=== PATIENT | male | born 1945 | race Caucasian/White ===

== ENCOUNTER → 2023-10-12 15:29 | Outpatient (REF) | payer MEDICARE, SELFPAY | LOC: HWRAD 15:29 | PROVIDERS: ATTENDING PHYSICIAN Physician Assistant Medical | DX: J45.41 Moderate persistent asthma with (acute) exacerbation (principal) | CPT/HCPCS: 71046 ==

== ENCOUNTER 2023-10-23 12:43 | Inpatient (IN) | payer MEDICARE, SELFPAY ==
[2023-10-23 08:40] VITALS: BMI 30.7
[2023-10-23 08:52] VITALS: BP 147/71
[2023-10-23 09:16] LABS: % Basophils 0.4 % (0-2); % Eosinophils 0.5 % (0-6); % Immature Granulocytes 1.7 % (0-0.5); % Lymphocytes 6.8 % (20.5-51.1); % Monocytes 5.6 % (1.7-9.3); Absolute Basophils 0.1 10^3/uL (0-0.2); Absolute Eosinophils 0.1 10^3/uL (0-0.7); Absolute Immature Granulocytes 0.3 10^3/uL (0-0.05); Absolute Lymphocytes 1.1 10^3/uL (1.2-3.4); Absolute Monocytes 0.9 10^3/uL (0.1-0.6); Absolute Neutrophils 13.8 10^3/uL (1.4-6.5); Hematocrit 42.6 % (39.0-52.0); Hemoglobin 14.8 g/dL (13.0-18.0); Mean Corp Hgb Conc. 34.7 g/dL (33.0-37.0); Mean Corpuscular Volume 95.1 fL (80.0-94.0); Mean Platelet Volume 9.7 fL (7.4-10.4); Nucleated Red Blood Cells % 0 % (-); Platelet Count 288 10^3/uL (130-400); Red Blood Cell Count 4.48 10^6/uL (4.70-6.10); Red Cell Dist. Width 12.6 % (11.5-14.5); White Blood Cell Count 16.2 10^3/uL (4.8-10.8)
--- NOTE | 2023-10-23 09:26 | ED.GENMED ---
History of Present Illness
General
Chief Complaint: Flank Pain
Source: patient
Exam Limitations: none
Time Seen by Provider: 10/23/23 09:11
Nursing documentation reviewed up to this point in time: agreed with
Travel History
Have you had any contact with someone who has COVID-19?: No
Do you have any symptoms of coronavirus? Fever > 100 degrees, chills, cough, shortness of breath, sore throat, loss of taste or smell, muscle aches, or headache?: No
History of Present Illness
History of Present Illness:
PT IS A 78 Y/O M with h/o 1 remote kidney stone requiring surgical removal in [place]
here with L back pain a few days ago that he though twas muscular
he has had a URI with a cough that is mostly improved, but he is still coughing
he was taking tylenol for this
but then at 3 am his pain got much worse and is still staying localized to L back but is very similar to previous kidney stone
pt has had n/v x 2 toay
no fever, no hematuria, no dysuria, no diarrhea
Past History
Past History
ED Past Medical History: Hypercholesterolemia and Other (kdiney stone)
Social History
Tobacco: Non-smoker
Alcohol: None
Drug: None
Personal:
Living: with family
Review of Systems
Review of Systems
Allergies reviewed?: Yes
All Other Systems: Not applicable
Phy Exam
Physical Exam
Physical Exam:
GENERAL: Alert, uncomfortable
Neck: supple
CARDIAC: Regular rate and rhythm .
LUNGS: Clear breath sounds bilaterally, no acute respiratory distress, no wheezes/rales/rhonchi
ABDOMEN: Soft, normal bowel sounds, nondistended, mild L flankt enderness; no guarding, no rebound, neg jenkins's
: normal inspection of region
nontender testicles b/l
no rashes
L cva region tender
NEUROLOGICAL: Alert and oriented, no focal neuro deficits
SKIN: Warm and dry, skin intact.
PSYCH: Normal and appropriate interaction.
Course
Orders/Labs/Results
Orders:
Orders
10/23/23 09:06
Complete Blood Count/With Diff Urgent
Comprehensive Metabolic Panel Urgent
10/23/23 09:22
0.9% Sodium Chloride 1000 ml [Nss] 1,000 ml IV BOLUS
HYDROmorphone [Dilaudid] 0.5 mg IV NOW STA
Ondansetron Injectable [Zofran] 4 mg IV NOW STA
10/23/23 09:31
Lactic Acid Q4H
Comment: CANCEL 2nd LACTIC ACID IF 1st LACTIC ACID IS LESS THAN 2
Blood Culture Q30M
ТАТЬЯНА Source: Blood/Venous
Specimen Description:
10/23/23 09:34
Urinalysis Reflex To Culture Urgent
Date Specimen was Collected: 10/23/23
Time Specimen was Collected: 09:32
Urine Microscopic Reflex Cult Urgent
10/23/23 09:37
Blood Culture Q30M
ТАТЬЯНА Source: Blood/Venous
Specimen Description:
10/23/23 Lunch
Regular
10/23/23 10:25
CT Abd/pel Without Iv Or Oral Urgent
Comment:
Reason For Exam: left flank pain, h/o kidney stone
10/23/23 10:32
Ketorolac [Toradol] 15 mg IV NOW STA
10/23/23 12:26
Admit/Transfer Patient As Directed
Co-Sign Provider:
Level of Care: Inpatient admission
Assign to:: Medical/Surgical
Physician / Group: Delon Lockhart
Diagnosis: Left ureteral obstructing stone
Reason for Hospitalization: Left ureteral obstructing stone
Expected length of stay greater than two midnights?: Yes
ELOS- Estimated Length of Stay in days: 3
I certify the patient meets the requirements for IP care: Yes
10/23/23 12:35
Code Status As Directed
Resuscitation Status: Full Code
10/23/23 14:40
Acetaminophen [Tylenol] 650 mg PO Q4HPRN PRN
Albuterol [ProAIR HFA INHALER] 2 puff INH R Q6HPRN PRN
Bisacodyl [Dulcolax] 10 mg RECTAL [id number] PRN
Docusate W/Senna [Senokot-S] 1 tablet PO BIDPRN PRN
HYDROmorphone [Dilaudid] 0.5 mg IV Q4HPRN PRN
Ondansetron Injectable [Zofran] 4 mg IV Q6HPRN PRN
Oxycodone [Roxicodone] 5 mg PO Q4HPRN PRN
Polyethylene Glycol Powder [Miralax] 17 grams PO DAILYPRN PRN
10/23/23 14:40
Activity As Directed
Activity Level: As Tolerated
Pneumatic Compression Sleeves As Directed
Type: Knee high
Vital Signs As Directed
Frequency: Per unit guidelines
DX Deep Vein Thrombosis Video Routine
10/23/23 15:00
Lactic Acid Q4H
Comment: CANCEL 2nd LACTIC ACID IF 1st LACTIC ACID IS LESS THAN 2
0.9% Sodium Chloride 1000 ml [Nss] 1,000 ml IV 75 mls/hr
10/23/23 16:00
CefTRIAXone [Rocephin] 1,000 mg IV Q24H
10/23/23 20:00
Tamsulosin [Flomax] 0.4 mg PO BID
10/24/23 Breakfast
NPO
Allow oral meds: Yes
Allow clear liquids: 4hrs prior to procedure
Comment: may have unrestricted clear liquid up to 4 hrs prior to scheduled procedure
Basic Metabolic Panel IN AM
Complete Blood Count/No Diff IN AM
10/24/23 08:00
Atorvastatin [Lipitor] 80 mg PO DAILY
Abnormal Lab Results
10/23/23 10/23/23
09:06 09:34
WBC 16.2 H 10^3/uL
(4.8-10.8)
RBC 4.48 L 10^6/uL
(4.70-6.10)
MCV 95.1 H fL
(80.0-94.0)
MCH 33.0 H pg
(27.0-31.0)
Abs Immat Gran (auto) 0.3 H 10^3/uL
(0-0.05)
Absolute Neuts (auto) 13.8 H 10^3/uL
(1.4-6.5)
Absolute Lymphs (auto) 1.1 L 10^3/uL
(1.2-3.4)
Absolute Monos (auto) 0.9 H 10^3/uL
(0.1-0.6)
Immature Gran % 1.7 H %
(0-0.5)
Neutrophils % 85.0 H %
(42.2-75.2)
Lymphocytes % 6.8 L %
(20.5-51.1)
Chloride 108 H mmol/L
(98-107)
Glucose 134 H mg/dl
(70-99)
ALT 80 H U/L
(0-50)
Urine Ketones Trace A
(Negative)
Ur Occult Blood Reflex 2+ A
(Negative)
Leukocyte Esterase Rfl Trace A
(Negative)
Urine RBC 16-20 A /HPF
(0-2)
10/23/23 09:06
10/23/23 09:06
Vital Signs
Initial and Last Documented VS:
Initial Vital Signs
Temp Pulse Resp BP Pulse Ox
99.1 F 70 18 147/71 97
10/23/23 08:52 10/23/23 08:52 10/23/23 08:52 10/23/23 08:52 10/23/23 08:52
Last Documented Vital Signs
Temp Pulse Resp BP Pulse Ox
99.0 F 74 16 131/82 95
10/23/23 14:56 10/23/23 14:56 10/23/23 14:56 10/23/23 14:56 10/23/23 14:56
MDM/Problems Addressed
Differential Diagnosis Includes:
kidney stone, pyelo, divertic
MDM/Problems Addressed:
78 y/o M
h/o 1 previous kidney stone removed (when living in [facility])
3 days lower back pain, worse at 3 am today, n/v x 2;
more comfortable now after pain meds
wbc 16
urine with 2+ blood, trace LE, no bacteria, no wbc;
ct shows 1 cm L prox UPJ stone with hydro
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
recommends either admit to medicine and OR tomorrow or d/c home with outpatient OR arrangement
pt would prefer admission
s/o hospitalist.
*Critical Care Note
Total Time (30-74mins, 75-104mins- exclusive of procedures): Not Applicable
ED Attending Note
-
Portions of this chart may have been created with voice recognition software.� Occasional wrong word or��sound alike� substitutions may have occurred due to the inherent limitations of voice recognition software.
Discharge Plan
Departure
Patient Disposition: Admit
Date of Disposition: 10/23/23
Time of Disposition: 11:46
Admit to: Med/Surg
Presentation/result/management discussed w/ accepting MD/DO: Hospitalist
Condition: Fair
Covid-19: Not Applicable
Discharge Problem:
Ureterolithiasis, Hydronephrosis
Interventions
Interventions:
*Risk Screen - Suicide Last Done: 10/23/23 09:04
*General Assessment Last Done: 10/23/23 09:04
*Neglect/Abuse Screening Last Done: 10/23/23 09:04
*ED COVID-19 Vaccine History Last Done: 10/23/23 09:04
*Nursing Disposition Last Done: 10/23/23 14:08
JE-Zetgbk-Hbhcbroofq Assessment Last Done: 10/23/23 09:10
ED-Male Genitourinary Assessment Last Done: 10/23/23 09:10
Discharge Date and Time
Discharge Date/Time: 10/23/23 14:08
[2023-10-23 09:30] LABS: ALT (SGPT) 80 U/L (0-50); AST (SGOT) 44 U/L (17-59); Albumin 4.4 g/dl (3.5-5.0); Alkaline Phosphatase 111 U/L (38-126); Blood Urea Nitrogen 20 mg/dl (9-20); Calcium 9.5 mg/dl (8.4-10.2); Carbon Dioxide 23 mmol/L (22-30); Chloride 108 mmol/L (98-107); Estimated Creatinine Clearance 80 ml/min; Glucose 134 mg/dl (70-99); Potassium 4.5 mmol/L (3.5-5.1); Sodium 137 mmol/L (135-145); Total Bilirubin 0.8 mg/dl (0.2-1.3); Total Protein 7.1 g/dl (6.3-8.2); eGFR > 60.00
[2023-10-23] MEDS: ZOFRAN 4 MG IV (09:32)
[2023-10-23] MEDS: DILAUDID 0.5 MG IV (09:33)
[2023-10-23] MEDS: NSS 1000 IV ×2 (09:33→15:59)
[2023-10-23 09:38] VITALS: BP 154/86
[2023-10-23 10:00] VITALS: BP 157/86
[2023-10-23 10:13] LABS: Urine Albumin Negative (Neg - Trace); Urine Bilirubin Negative (Negative); Urine Character Clear (Clear); Urine Color Yellow; Urine Glucose Negative (Negative); Urine Ketone Trace (Negative); Urine Leukocyte Trace (Negative); Urine Nitrite Negative (Negative); Urine Occult Blood 2+ (Negative); Urine Urobilinogen Negative (Neg - 1+)
[2023-10-23 10:38] LABS: Urine Mucus Moderate
[2023-10-23 10:39] LABS: Urine Red Blood Cell 16-20 /HPF (0-2)
[2023-10-23 10:40] LABS: Urine Calcium Oxalate Crystals Seen; Urine White Cell 0-2 /HPF (0-5)
[2023-10-23] MEDS: TORADOL 15 MG IV (10:56)
[2023-10-23 11:00] VITALS: BP 140/81
--- NOTE | 2023-10-23 12:38 | HPS.HSE ---
Family Physician
-
Family Physician: Kait Manzano
Chief Complaint
-
Left back pain
History of Present Illness
Patient is a 78-year-old male with past medical history of hyperlipidemia, BPH, asthma, history of kidney stones, prediabetes came to ER with new onset of left-sided flank pain. Patient initially started having pain 1 week back and felt to be
muscular in nature. Last night started worsening rapidly with associated nausea and vomiting. Patient does have remote history of kidney stone requiring surgical intervention in [place]. Patient does follow-up with urology for BPH. Denies of
having any other episodes of kidney stones in between.
Patient denies any associated problems of fever/hematuria/foul-smelling urine. No change in bowel habits.
No cardiopulmonary complaints.
Medical History
Past Medical History
Past Medical History: Reports Other
Additional Past Medical History:
hyperlipidemia, BPH, asthma, history of kidney stones, prediabetes
Past Surgical History: Reports Other
Social History
Tobacco: Non-smoker
Alcohol: Occasional
Drug: None
Living: With Family
Employment: Retired
Family History
Family History: Not pertinent
Allergies / Home Medications
Allergies reflects when Allergies were last updated in [facility].
Home Medications with original date entered in [facility]
Allergy/Medication List:
Allergies
Allergy/AdvReac Type Severity Reaction Status Date / Time
No Known Allergies Allergy Unverified 10/23/23 08:51
Home Medications
albuterol sulfate 90 mcg/actuation aerosol inhaler 2 puff inhalation Q6H PRN Shortness of breath 10/23/23
ascorbic acid (vitamin C) 1,000 mg tablet (Vitamin C) 500 mg PO DAILY Supplement 10/23/23
atorvastatin 80 mg tablet 80 mg PO DAILY High Cholesterol 10/23/23
multivitamin 1 tab PO DAILY Supplement 10/23/23
tamsulosin 0.4 mg capsule 0.4 mg PO BID Prostate 10/23/23
turmeric 400 mg capsule 400 mg PO DAILY Supplement 10/23/23
vitamin B complex 1 cap PO DAILY Supplement 10/23/23
vitamin E 670 mg (1,000 unit) capsule 670 mg PO DAILY Supplement 10/23/23
Review of Systems
-
A 12 point ROS was completed and negative except as noted: Yes
Physical Exam
Vital Signs
Vital Signs
Temp Pulse Resp BP Pulse Ox
99.1 F 70 18 157/86 93
10/23/23 08:52 10/23/23 08:52 10/23/23 08:52 10/23/23 10:00 10/23/23 10:00
Physical Exam
General: No Apparent Distress
HEENT: NormoCephalic, Moist mucous membranes and Atraumatic
Respiratory: Clear
Cardiac: S1/S2 and Regular Rhythm; No Murmur or Rub
GI: Soft and Non Tender
Musculoskeletal: No Clubbing, No Cyanosis and No Edema
Skin: No Rash
Neuro: Awake, Alert, Oriented and Nonfocal/grossly intact
Laboratory Results
-
10/23/23 09:06
10/23/23 09:06
Laboratory Results
Lactic Acid 2.0 mmol/L (0.7-2.0) 10/23/23 09:31
Total Bilirubin 0.8 mg/dl (0.2-1.3) 10/23/23 09:06
AST 44 U/L (17-59) 10/23/23 09:06
ALT 80 U/L (0-50) H 10/23/23 09:06
Alkaline Phosphatase 111 U/L (38-126) 10/23/23 09:06
Data Reviewed
-
Diagnostic Radiology: Image Personally Visualized and interpreted, Discussed with Patient and Discussed with Family
Lab Data: Labs Reviewed by me, Discussed with Patient and Discussed with Family
Impression/Plan
-
1. Left UPJ obstructing stone
Urinary tract infection
-Comes in with ongoing flank pain with rapid worsening in last 24 hours
-Patient have leukocytosis. afbrile.
-CT abdomen pelvis showing 1 cm kidney stone at left UPJ causing obstruction and hydronephrosis
-UA showed microhematuria although no pyuria/bacteriuria presumed infected urine being blocked by left UPJ stone. Would cover with empiric Rocephin for now
-Admit patient to [facility]
-Urology consulted and patient for OR tomorrow, maintain n.p.o. past midnight
-Maintenance slow IV fluid and pain medication
hyperlipidemia
BPH
asthma
history of kidney stones
prediabetes
DVT PPX - scd
Full code
Total time spent : 77 mins
I personally saw and examined the patient.
I have reviewed all diagnostic interpretations and treatment plans as written.
Time includes patient management by me, time spent at the patients bedside, time to review lab and imaging results, discussing patient care, documentation in the medical record, and time spent with the family or caregiver and discussing care plan
with RN/Consultants.
[2023-10-23 14:56] VITALS: BP 131/82; BMI 30.9
[2023-10-23 15:29] LABS: Lactic Acid 1.2 mmol/L (0.7-2.0)
[2023-10-23] MEDS: STERILE WATER FOR INJECTION 10 ML IV (15:44)
[2023-10-23] MEDS: ROCEPHIN 1000 MG IV (15:59)
--- NOTE | 2023-10-23 17:30 | W.PN.URO.CBU ---
Today's Communication / Plan
-
to op room npo at hs
Assessment / Plan
-
10mm left upj stone with bph and s/p uretrolithotomy years ago plabn uretroscopic lasr unless cannot bypas bph an / or navigate ureral scar on left
Diagnosis
-
Date of Service: October 23, 2023
-
Patient Diagnosis:10mm obstructing left upj stone n pt with bphand previous urtrolithotomy
Post Op Day:
Subjective
-
no fevr vchills
Objective
-
Vital Signs
Temp Pulse Resp BP Pulse Ox
99.0 F 74 16 131/82 95
10/23/23 14:56 10/23/23 14:56 10/23/23 14:56 10/23/23 14:56 10/23/23 14:56
Laboratory Results
10/23/23 09:06
10/23/23 09:06
Review of Systems
-
Abdomen/GI: Nausea
: Flank Pain
Physical Exam
-
General - well developed, well nourished, no acute distress
Chest - clear bilaterally
Abdomen - soft, non-tender, positive bowel sounds, no CVAT, no incisional pain or distention
Genitalia - normal
Rectal - normal
Skin - warm & dry with no rash
Neuro - AOx3, no motor deficits
Extremities - no clubbing, no cyanosis, no edema
Incision - clean, dry
Dressing - clean, dry, intact
Counseling
-
dd consent explained procedure altenaivs and complications
Care Review
Data Reviewed
Discussed with: Hospitalist and Nursing
CT Scan: Image Pers Reviewed
[2023-10-23] MEDS: FLOMAX 0.400000000000000022 MG PO (21:15)
[2023-10-23] MEDS: ROXICODONE 5 MG PO (21:15)
[2023-10-23] MEDS: TYLENOL 650 MG PO (21:19)
[2023-10-23 23:30] VITALS: BP 131/80
[2023-10-24] VITALS (11 sets, daily range): BP systolic 115–148; BP diastolic 65–105
[2023-10-24] MEDS: NSS 1000 IV (05:23)
[2023-10-24 08:26] LABS: Hematocrit 40.4 % (39.0-52.0); Hemoglobin 13.9 g/dL (13.0-18.0); Mean Corp Hgb Conc. 34.4 g/dL (33.0-37.0); Mean Corpuscular Hgb 33.4 pg (27.0-31.0); Mean Corpuscular Volume 97.1 fL (80.0-94.0); Platelet Count 262 10^3/uL (130-400); Red Blood Cell Count 4.16 10^6/uL (4.70-6.10); Red Cell Dist. Width 12.8 % (11.5-14.5)
[2023-10-24 09:09] LABS: Glycohemoglobin (HgbA1c) 5.9 % (4.0-5.6)
[2023-10-24 09:13] LABS: Blood Urea Nitrogen 21 mg/dl (9-20); Calcium 8.9 mg/dl (8.4-10.2); Carbon Dioxide 26 mmol/L (22-30); Chloride 105 mmol/L (98-107); Estimated Creatinine Clearance 101 ml/min; Glucose 96 mg/dl (70-99); Potassium 4.5 mmol/L (3.5-5.1); Sodium 135 mmol/L (135-145); eGFR > 60.00
--- NOTE | 2023-10-24 10:21 | W.SUR.POST ---
Surgical Immediate Post Op
Note
Pre Op Diagnosis: left upj stone with obstruction
Post Op Diagnosis: same
Procedure Performed: left uretroscopystone manipulation jj stent
Primary Surgeon:
flashner
Secondary Surgeons:
Anesthesia: general dr sanabria
Estimated Blood Loss: 30cc
Fluids: nss
Drains/Shunts: 24 cm 6 fr jj stent
Specimens/Cultures:
Doppler/Duplex/Angio (Y/N):
Complications: 0
Operative Findinghuge prostae preventinfg advancement odf scope and ax=ccess sheet placed torres and jj stent :
[2023-10-24] MEDS: DEMEROL 12.5 MG IV (10:36)
[2023-10-24] MEDS: DILAUDID 0.25 MG IV ×3 (10:55→17:04)
[2023-10-24] MEDS: FLOMAX 0.400000000000000022 MG PO (11:18)
--- NOTE | 2023-10-24 12:46 | W.PN.HOSP.TC ---
Today's Communication/Plan
-
d/c home
Assessment / Plan
Assessment / Plan
1. Left UPJ obstructing stone
Urinary tract infection
-Comes in with ongoing flank pain with rapid worsening in last 24 hours
-Patient have leukocytosis. afbrile.
-CT abdomen pelvis showing 1 cm kidney stone at left UPJ causing obstruction and hydronephrosis
-Patient taken to the OR. Due to enlarged prostate stone could not be retrieved, underwent ureteral stent placement with plan for patient to return to the OR in few weeks for definitive treatment of stone
-Discussed with urology, recommended short course of antibiotic. Providing oral Levaquin for 5 days
-Poole catheter in place with some bleeding ongoing. Poole to be removed and patient to have voiding trial.
-Patient to be discharged home if successfully able to void otherwise will require Poole replacement and discharge after that
hyperlipidemia
BPH
asthma
history of kidney stones
prediabetes
DVT PPX - scd
Full code
More than 30 minutes spent in discharge including
Final examination of the patient
Summarizing hospital stay
Instructions for continuing care to all relevant caregivers
Preparation of discharge records, prescriptions, and referral forms
Total time spent (in minutes): 40 mins
Anticipated Discharge: Today
Subjective/Interval History
-
Date of Service: October 24, 2023
Patient seen postoperatively
Not complaining excessive pain/nausea/vomiting
Objective Data
-
Labs:
Laboratory Results
10/24/23 10/24/23
07:38 07:39
WBC 9.0
Hgb 13.9
Hct 40.4
Plt Count 262
Sodium 135
Potassium 4.5
Chloride 105
Carbon Dioxide 26
BUN 21 H
Creatinine 0.8
Glucose 96
Calcium 8.9
Vital Signs:
Vital Signs
Temp Pulse Resp BP Pulse Ox
97.6 F 71 16 145/77 97
10/24/23 12:00 10/24/23 12:00 10/24/23 12:00 10/24/23 12:00 10/24/23 12:00
I&O
10/23/23 10/24/23 10/25/23
06:59 06:59 06:59
Intake Total 1140 / 1140 460 / 460
Output Total 300 / 300
Balance 1140 / 1140 160 / 160
Review of Systems
-
Respiratory: Reports No Symptoms
Cardiac: Reports No Symptoms
Abdomen/GI: Reports No Symptoms
Physical Exam
-
General: No Apparent Distress and Comfortable
HEENT: Negative Oxygen
Genito-urinary: Other (Poole catheter in place with sanguinous urine)
Musculoskeletal: No Edema
Neuro: Awake, Alert, Oriented, No Motor Deficits and Nonfocal/Grossly Intact
Psych: Calm
[2023-10-24] MEDS: DILAUDID 0.5 MG IV ×2 (14:32→18:34)
[2023-10-24] MEDS: STERILE WATER FOR INJECTION 10 ML IV (16:00)
[2023-10-24] MEDS: ROCEPHIN 1000 MG IV (16:01)
--- NOTE | 2023-10-25 08:07 | W.DCSUMMARY ---
Discharge Summary
Discharge Data
Date of Admission: 10/23/23
Date of Discharge: 10/24/23
-
Pending Results: No
Hospital Course
Discharging Physician : Dr Delon Lockhart
Disposition : Home
Primary care physician : Dr Kait Manzano
Principal Discharge diagnosis :
Left ureteropelvic junction obstructing stone and hydronephrosis
Chronic Discharge diagnosis :
Hyperlipidemia
Benign prostatic hyperplasia
Asthma
History of kidney stones
Prediabetes
Hospital Course :
Patient is a 78-year-old male with mentioned past medical history came to ER for having new onset of left-sided flank pain, which is ongoing for 1 week. Patient symptoms got worse rapidly in 24 hours before ER visit associated with nausea and
vomiting. In ER patient had a CT abdomen pelvis which showed 1 cm left UPJ obstructing stone and related to hydronephrosis. UA was not showing significant pyuria and bacteriuria. Urology was consulted and patient was planned to taken to the OR.
In the OR stone was not able to be completely retrieved due to patient BPH and instead stent was placed in ureter. Patient is planned to be brought back to the OR into 3 weeks for definitive treatment of stone. Patient being provided short course
of antibiotic per urology recommendation at discharge
Important imaging findings :
None
Procedure findings :
None
Discharge Plan
-
Patient Disposition: Home (Routine Discharge)
Discharge Diagnosis/Procedures: Left UPJ obstructing stone, UTI
Condition: Fair
Diet: Regular
Activity: As tolerated
Driving Restrictions: No driving for 24 hours
Bathing Restrictions: OK to Shower
Referrals:
Kait Manzano MD [Family Provider] - in one week
Tavo Mathew MD [Active] - (you have a stent Expect frequncy and urgency and blood in urin Call Dr Mathew [phone] to set upnext phase treatment)
Prescriptions:
New
levofloxacin 750 mg tablet
750 mg PO DAILY 5 Days Qty: 5 0RF
oxycodone 5 mg tablet
5 mg PO Q8H PRN (Reason: mod sev pain) Qty: 14 0RF
Continued
atorvastatin 80 mg tablet
80 mg PO DAILY
tamsulosin 0.4 mg capsule
0.4 mg PO BID
albuterol sulfate 90 mcg/actuation HFA aerosol inhaler
2 puff INHALATION Q6H PRN (Reason: Shortness of breath )
Patient Comments:
Was only using for a short term due to respiratory infection cough
multivitamin Tablet
1 tab PO DAILY
vitamin E 670 mg (1,000 unit) Capsule
670 mg PO DAILY
ascorbic acid (vitamin C) [Vitamin C] 1,000 mg Tablet
500 mg PO DAILY
vitamin B complex Capsule
1 cap PO DAILY
turmeric 400 mg Capsule
400 mg PO DAILY
Discharge Orders:
Discharge Patient (As Directed); Ordered 10/24/23
Ordered By: Delon Lockhart
Discharge Date and Time
Discharge Date/Time: 10/24/23 18:50
Print Language: WELSH
== END 2023-10-24 18:50 | disposition home or self-care (01) | DRG 661 ==
LOC: 3 WEST ACU 12:43
PROVIDERS: Physician Assistant; ADMITTING PHYSICIAN Hospitalist; EMERGENCY PHYSICIAN Student in an Organized Health Care Education/Training Program; FAMILY PHYSICIAN Internal Medicine; OTHER PHYSICIAN Specialist
PROC: 0T778DZ Dilation of Left Ureter with Intraluminal Device, Via Natural or Artificial Opening Endoscopic (ICD-10-PCS; 2023-10-24)
DX: N13.6 Pyonephrosis (principal); E78.00 Pure hypercholesterolemia, unspecified; N40.0 Benign prostatic hyperplasia without lower urinary tract symptoms; R73.03 Prediabetes; R31.0 Gross hematuria; Z87.442 Personal history of urinary calculi
CPT/HCPCS: 74018; 74176; 76000; 80048; 80053; 81003; 81015; 83036; 83605; 85025; 85027; 87040; 96361; 96374; 96375; 99284; A4300; C1894; C2617

== ENCOUNTER 2023-11-10 06:19 | Day surgery (SDC) | payer MEDICARE, SELFPAY ==
[2023-11-10] VITALS (8 sets, daily range): BP systolic 116–142; BP diastolic 71–85; BMI 30.4
[2023-11-10 11:00] LABS: Urine Albumin 1+ (Neg - Trace); Urine Bilirubin Negative (Negative); Urine Character Slightly Cloudy (Clear); Urine Color Yellow; Urine Glucose Negative (Negative); Urine Ketone Negative (Negative); Urine Leukocyte 2+ (Negative); Urine Nitrite Negative (Negative); Urine Occult Blood 4+ (Negative); Urine Urobilinogen Negative (Neg - 1+)
[2023-11-10] MEDS: NORMOSOL-R 1000 IV (11:05)
[2023-11-10 11:14] LABS: Urine Red Blood Cell 40-50 /HPF (0-2); Urine Squamous Cell 0-2 /LPF (Few)
[2023-11-10 11:16] LABS: Urine Bacteria Few (Negative)
[2023-11-10] MEDS: Pyridium 200 MG PO (16:18)
== END 2023-11-10 17:53 | disposition home or self-care (01) ==
LOC: SDS 06:19
PROVIDERS: ATTENDING PHYSICIAN Specialist
DX: N40.0 Benign prostatic hyperplasia without lower urinary tract symptoms (principal); N20.2 Calculus of kidney with calculus of ureter
CPT/HCPCS: 52356; 74420; 76000; 81003; 81015; 87086; A4300; C1894; C2617; J1580

== ENCOUNTER 2025-02-07 12:50 | Inpatient (IN) | payer MEDICARE, SELFPAY ==
[2025-02-07] VITALS (9 sets, daily range): BP systolic 120–165; BP diastolic 55–89; BMI 31.9; BMI 32.0
[2025-02-07 08:32] LABS: Hematocrit 42.8 % (39.0-52.0); Hemoglobin 14.5 g/dL (13.0-18.0); Mean Corp Hgb Conc. 33.9 g/dL (33.0-37.0); Mean Corpuscular Volume 96.8 fL (80.0-94.0); Nucleated Red Blood Cells % 0 % (-); Platelet Count 254 10^3/uL (130-400); Red Cell Dist. Width 12.3 % (11.5-14.5)
[2025-02-07 08:55] LABS: ALT (SGPT) 38 U/L (0-50); AST (SGOT) 33 U/L (17-59); Albumin 4.6 g/dl (3.5-5.0); Alkaline Phosphatase 89 U/L (38-126); Blood Urea Nitrogen 15 mg/dl (9-20); Calcium 9.4 mg/dl (8.4-10.2); Carbon Dioxide 23 mmol/L (22-30); Chloride 108 mmol/L (98-107); Estimated Creatinine Clearance 71 ml/min; Glucose 138 mg/dl (70-99); Potassium 4.8 mmol/L (3.5-5.1); Sodium 140 mmol/L (135-145); Total Protein 7.2 g/dl (6.3-8.2); eGFR > 60.00
[2025-02-07 08:59] LABS: Urine Character Clear (Clear)
[2025-02-07] MEDS: FLOMAX 0.4 MG PO ×2 (09:00→18:22)
[2025-02-07] MEDS: NSS 1000 IV ×2 (09:00→18:19)
[2025-02-07] MEDS: TORADOL 30 MG IV (09:00)
[2025-02-07] MEDS: ZOFRAN 4 MG IV (09:02)
[2025-02-07] MEDS: MORPHINE SULFATE 4 MG IV (09:02)
[2025-02-07 09:35] LABS: Urine Urothelial Cell 0-2 /LPF (FEW)
[2025-02-07 09:36] LABS: Urine Red Blood Cell 16-20 /HPF (0-2); Urine White Cell 40-50 /HPF (0-5)
--- NOTE | 2025-02-07 10:01 | ED.GENMED ---
History of Present Illness
General
Chief Complaint: Flank Pain
Time Seen by Provider: 02/07/25 08:46
History of Present Illness
History of Present Illness:
See MDM
Past History
Past History
ED Past Medical History: Hypercholesterolemia and Other (kdiney stone)
Social History
Tobacco: Non-smoker
Alcohol: None
Drug: None
Personal:
Living: with family
Phy Exam
Physical Exam
Physical Exam:
See MDM
Course
Orders/Labs/Results
Orders:
Orders
02/07/25 08:20
CMP [Comprehensive Metabolic Panel] Urgent
Complete Blood Count/With Diff Urgent
02/07/25 08:51
Urinalysis Reflex To Culture Urgent
Date Specimen was Collected: 02/07/25
Time Specimen was Collected: 08:50
Urine Microscopic Reflex Cult Urgent
Urine Culture Urgent
ТАТЬЯНА Source: U
Specimen Description:
Date Specimen was Collected: 02/07/25
Time Specimen was Collected: 08:50
02/07/25 08:54
0.9% Sodium Chloride 1000 ml [Nss] 1,000 ml IV BOLUS
Ketorolac [Toradol] 30 mg IV NOW STA
Morphine Sulfate 4 mg IV NOW STA
Ondansetron Injectable [Zofran] 4 mg IV NOW STA
Tamsulosin [Flomax] 0.4 mg PO NOW STA
02/07/25 08:55
CT Abd/pel Without Iv Or Oral Urgent
Comment:
Reason For Exam: left flank pain
02/07/25 09:59
CefTRIAXone [Rocephin] 1,000 mg IV NOW STA
02/07/25 11:20
Consult Urology [UROLOGY CONSULT] Routine
Consulting Provider: Randy Vila
Was physician already notified: Yes
Abnormal Lab Results
02/07/25 02/07/25
08:20 08:51
WBC 17.8 H 10^3/uL
(4.8-10.8)
RBC 4.42 L 10^6/uL
(4.70-6.10)
MCV 96.8 H fL
(80.0-94.0)
MCH 32.8 H pg
(27.0-31.0)
Abs Immat Gran (auto) 0.1 H 10^3/uL
(0-0.05)
Absolute Neuts (auto) 15.6 H 10^3/uL
(1.4-6.5)
Absolute Lymphs (auto) 0.9 L 10^3/uL
(1.2-3.4)
Absolute Monos (auto) 1.1 H 10^3/uL
(0.1-0.6)
Neutrophils % 87.8 H %
(42.2-75.2)
Lymphocytes % 5.1 L %
(20.5-51.1)
Chloride 108 H mmol/L
(98-107)
Glucose 138 H mg/dl
(70-99)
Ur Occult Blood Reflex 2+ A
(Negative)
Urine Nitrite (Reflex) Positive A
(Negative)
Leukocyte Esterase Rfl 3+ A
(Negative)
Urine RBC 16-20 A /HPF
(0-2)
Urine WBC (Reflex) 40-50 A /HPF
(0-5)
Urine Bacteria (Reflex) Many A
(Negative)
Urine Albumin (Reflex) 2+ A
(Neg - Trace)
02/07/25 08:20
02/07/25 08:20
Vital Signs
Initial and Last Documented VS:
Initial Vital Signs
Temp Pulse Resp BP Pulse Ox
98.7 F 98 20 164/89 100
02/07/25 08:11 08/19/25 08:11 02/07/25 08:11 02/07/25 08:11 02/07/25 08:11
Last Documented Vital Signs
Temp Pulse Resp BP Pulse Ox
98.7 F 58 17 147/68 95
02/07/25 08:11 02/07/25 09:56 02/07/25 09:56 02/07/25 09:56 02/07/25 09:56
MDM/Problems Addressed
Differential Diagnosis Includes:
Note:
CHIEF COMPLAINT(S)
Left-sided abdominal pain, possible kidney stone.
HISTORY OF PRESENT ILLNESS
The patient is a 79-year-old male who presents with left-sided abdominal pain that began in the morning. The patient suspects another kidney stone, as he has had a history of kidney stones in the past. He described the pain as severe enough to wake
him up. The patient has not taken any medication for the pain at home. He reports associated nausea but did not specify the presence of vomiting.
EXTERNAL RECORDS REVIEWED
CT scan ordered to confirm the presence of a kidney stone.
PHYSICAL EXAM
General: Mildly uncomfortable
Skin: Warm, dry.
Head: Normocephalic, atraumatic
Neck: Appears supple, trachea midline.
Eyes, Ears, Nose, Mouth, and Throat: Oral mucosa moist.
Cardiovascular: No signs of cyanosis
Respiratory: Respirations are non-labored.
Abdomen: Non-distended and nontender
Back: No CVA tenderness
Musculoskeletal: No deformities
Neurological: No focal neurological deficit observed.
Psychiatric: Cooperative, appropriate mood and affect.
PLAN
1. Administer Toradol (ketorolac) intravenously for pain management.
2. Administer Zofran (ondansetron) to address nausea.
3. If pain is not relieved, morphine will be given with consideration of arranging alternative transportation due to effects of sedation.
4. Perform a CT scan to confirm the presence, size, and location of a kidney stone.
5. Check the patients urine for hematuria or signs of infection.
6. Prescribe Flomax (tamsulosin) to facilitate stone passage if confirmed.
DIFFERENTIAL DIAGNOSIS
The Differential Diagnosis includes, in no particular order and is not limited to:
1. Nephrolithiasis (Kidney stone)
2. Pyelonephritis
3. Abdominal aortic aneurysm
4. Intestinal obstruction
5. Diverticulitis
6. Pancreatitis
7. Herpes zoster (before rash onset)
8. Musculoskeletal pain
9. Gastroenteritis
10. Renal colic
CARE-UPDATE
02/07/25 - 10:01
Initiated Rocephin for suspected UTI. Further disposition pending results of CT scan to assess for potential obstruction
Disposition:
SUMMARY OF ENCOUNTER
The patient, a 79-year-old male, presented to the emergency department with severe left-sided abdominal pain, suspected to be due to a kidney stone as he has had a history of nephrolithiasis. A CT scan confirmed the presence of a large kidney stone
at the left ureteropelvic junction (U.P.J.). His urine tested positive for nitrites, and he showed leukocytosis. Due to the size of the stone and concerns of an underlying infection, the decision was made to admit the patient for further urological
evaluation and management.
DISPOSITION
Admit to hospital for urology evaluation.
ASSESSMENT
The patient has a large kidney stone at the left U.P.J. with possible associated infection.
EMERGENCY TREATMENTS ADMINISTERED
Intravenous ceftriaxone (Rocephin) was administered due to positive urine nitrites and leukocytosis indicating possible infection.
PLAN
Admit the patient for further evaluation by urology, who is aware of the case and plans to place the patient on the operating room schedule for tomorrow.
INDEPENDENT REVIEW OF LABS AND INTERPRETATION OF TESTS
My independent review of the urinalysis is positive for nitrites and the CBC shows leukocytosis, indicating possible infection.
MEDICAL DECISION MAKING
-Complexity of Data Reviewed: Chronic conditions affecting care include history of nephrolithiasis. Differential Diagnosis includes: nephrolithiasis (Kidney stone), pyelonephritis, abdominal aortic aneurysm, intestinal obstruction, diverticulitis,
pancreatitis, herpes zoster, musculoskeletal pain, gastroenteritis, and renal colic.
-Data:
Category 1
Non-emergency department records reviewed: I reviewed the patients external records which included previous episodes of nephrolithiasis.
Category 2
My independent interpretation of the CT scan confirms a large kidney stone at the left ureteropelvic junction.
Category 3
Discussion of management with urology regarding the need for surgical intervention and placing the patient on the OR schedule.
-Risk:
Prescription medication was prescribed: Intravenous ceftriaxone due to concern for infection associated with the kidney stone. Admission to the hospital was decided upon to manage the risk of complications from the kidney stone and potential
infection.
DIAGNOSIS
Nephrolithiasis with potential infection (ICD-10 code: N20.0).
*Pulse Oximetry
SaO2: 95
Oxygen Mode of Delivery: Room air
Patient hypoxic: no
*Critical Care Note
Total Time (30-74mins, 75-104mins- exclusive of procedures): Not Applicable
ED Attending Note
-
Portions of this chart may have been created with voice recognition software.� Occasional wrong word or��sound alike� substitutions may have occurred due to the inherent limitations of voice recognition software.
Discharge Plan
Departure
Patient Disposition: Admit
Date of Disposition: 02/07/25
Time of Disposition: 11:24
Admit to: Med/Surg
Presentation/result/management discussed w/ accepting MD/DO: Hospitalist
Discharge Problem:
Left ureteral stone, Acute UTI
Prescriptions:
No Action
atorvastatin 80 mg tablet
80 mg PO DAILY
tamsulosin 0.4 mg capsule
0.4 mg PO BID
albuterol sulfate 90 mcg/actuation HFA aerosol inhaler
2 puff INHALATION Q6H PRN (Reason: Shortness of breath )
Patient Comments:
Was only using for a short term due to respiratory infection cough
multivitamin Tablet
1 tab PO DAILY
vitamin E 670 mg (1,000 unit) Capsule
670 mg PO DAILY
ascorbic acid (vitamin C) [Vitamin C] 1,000 mg Tablet
500 mg PO DAILY
vitamin B complex Capsule
1 cap PO DAILY
turmeric 400 mg Capsule
400 mg PO DAILY
solifenacin 10 mg Tablet
10 mg PO DAILY
Referrals:
Robyn Do DO [Family Provider, Family Practice]
Interventions
Interventions:
*Risk Screen - Suicide Last Done: 02/07/25 08:11
*General Assessment Last Done: 02/07/25 08:11
*Neglect/Abuse Screening Last Done: 02/07/25 08:54
*ED COVID-19 Vaccine History Last Done: 02/07/25 08:54
TN-[id number]-[id number] Assessment Last Done: 02/07/25 08:54
ED-Male Genitourinary Assessment Last Done: 02/07/25 08:54
Discharge Date and Time
Print Language: SOUTH AFRICAN
[2025-02-07] MEDS: ROCEPHIN 1000 MG IV ×2 (10:13→20:28)
--- NOTE | 2025-02-07 11:46 | HPS.HSE ---
Addendum entered and electronically signed by William Holly MD 02/07/25 19:52:
I interviewed and examined the patient. Discussed with Dr. Belkis Turner and agree with findings and plan as documented in note.
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
notable for elevated WBC at 17.8, BUN normal.� Urinalysis suggestive UTI.� CT scan showed 19 mm calculus at the left ureteropelvic junction. Slightly progressive perinephric soft tissue stranding and mild to moderate hydronephrosis. Pain improved
during ED evaluation and treatment with pain medications IVF and abx. No costovertebral angle tenderness was noted following pain control. Examination was notable for distended abdomen vs obesity habitus patient noted had been present for a few
months. Denied recent weight gain/loss or constipation.
Physical Exam
General: No acute distress, appears comfortable at this time
HEENT: NormoCephalic and Moist mucous membranes
Respiratory: Clear
Cardiac: S1/S2 and Regular Rhythm
GI: Soft, Non Tender, Distended Abd vs Obesity Habitus
Musculoskeletal: No Edema
Neuro: AO x 3
Psych: Calm
#Left ureteropelvic junction obstructing calculus with mild�moderate hydronephrosis
#Likely associated Lt Pyelonephritis
#Complicated UTI
#Obesity BMI 31.9
#Distended abd vs Obesity Habitus
#Hyperlipidemia
#BPH
#Asthma
IV abx ceftriaxone
follow urine culture
Urology eval appreciated npo after midnight for intervention
IVF support
Check Abd US in AM eval distended abd vs body habitus
pain control Tylenol Toradol prn
GI ppx Protonix while on Toradol
I spent a total of 80 minutes with the patient or on the floor. More than 50% of this time involved counseling and coordination of care.
Original Note:
Family Physician
-
Family Physician: Robyn Do DO
Chief Complaint
-
left sided flank pain
History of Present Illness
This is a 79-year-old male with past medical history of hyperlipidemia, BPH, asthma, history of kidney stones who presents to the ED complaining of left-sided flank pain that began this morning at 1am.� Patient reports pain was similar to what he
had one year ago when he had a kidney stone.� Reports pain was severe, waking him up from sleep.� He reports nausea and vomiting episode. Denies hematemesis. Denies Chest pain, shortness of breath, palpitation. Denies fever, denies chills.
Upon presentation to the ED, vitals with temperature 98.7, blood pressure 164/89, pulse 98, respiratory rate 20, O2 sat 100% on room air.� Laboratory showed elevated WBC at 17.8, BUN normal.� Urinalysis positive for UTI.� He was evaluated with a CT
scan which showed 19 mm calculus at the left ureteropelvic junction. Slightly progressive perinephric soft tissue stranding and mild to moderate hydronephrosis.
Medical History
Past Medical History
Past Medical History: Reports Other (hyperlipidemia, BPH, asthma, history of kidney stones, prediabetes)
Past Surgical History: Reports Urological and Other
Social History
Tobacco: Non-smoker
Alcohol: Occasional
Drug: None
Living: With Family
Employment: Retired
Family History
Family History: Not pertinent
Allergies / Home Medications
Allergies reflects when Allergies were last updated in [facility].
Home Medications with original date entered in [facility]
Allergy/Medication List:
Allergies
Allergy/AdvReac Type Severity Reaction Status Date / Time
No Known Allergies Allergy Verified 02/07/25 08:11
Home Medications
ascorbic acid (vitamin C) 1,000 mg tablet (Vitamin C) 500 mg PO DAILY Supplement 10/23/23
atorvastatin 80 mg tablet 80 mg PO DAILY High Cholesterol 10/23/23
multivitamin 1 tab PO DAILY Supplement 10/23/23
tamsulosin 0.4 mg capsule 0.4 mg PO QPM Prostate 10/23/23
turmeric 400 mg capsule 400 mg PO DAILY Supplement 10/23/23
vitamin B complex 1 cap PO DAILY Supplement 10/23/23
vitamin E 670 mg (1,000 unit) capsule 670 mg PO DAILY Supplement 10/23/23
coQ10 (ubiquinol) 100 mg capsule 100 mg PO DAILY 02/07/25
finasteride 5 mg tablet 5 mg PO QPM 02/07/25
Review of Systems
-
A 12 point ROS was completed and negative except as noted: Yes
Constitutional: Reports No Symptoms
Respiratory: Reports No Symptoms
Cardiac: Reports No Symptoms
Abdomen/GI: Reports See HPI
Physical Exam
Vital Signs
Vital Signs
Temp Pulse Resp BP Pulse Ox
98.7 F 66 18 120/55 95
02/07/25 08:11 02/07/25 11:44 02/07/25 11:26 02/07/25 11:24 02/07/25 11:30
Physical Exam
General: Well Developed, Well Nourished and No Apparent Distress
HEENT: NormoCephalic and Moist mucous membranes
Respiratory: Clear
Cardiac: S1/S2 and Regular Rhythm
GI: Soft, Non Tender, Non Distended and Normal Bowel Sounds
Musculoskeletal: No Edema
Neuro: AO x 3
Psych: Calm
Laboratory Results
-
02/07/25 08:20
02/07/25 08:20
Laboratory Results
Total Bilirubin 0.7 mg/dl (0.2-1.3) 02/07/25 08:20
AST 33 U/L (17-59) 02/07/25 08:20
ALT 38 U/L (0-50) 02/07/25 08:20
Alkaline Phosphatase 89 U/L (38-126) 02/07/25 08:20
Impression/Plan
-
Assessment/plan
#Left ureteropelvic junction obstructing calculus with mild�moderate hydronephrosis
-CT abdomen- 19 mm calculus at the left ureteropelvic junction. Slightly progressive perinephric soft tissue stranding and mild to moderate hydronephrosis. Cannot exclude superimposed infection. Other tiny nonobstructing bilateral renal calculi.
Interval development of 1.9 cm peripherally calcified urinary bladder calculus.
-pain control with Toradol, IV fluids
-Urology consulted, plan for OR tomorrow
-Keep n.p.o. at midnight
-urinalysis positive, urine cultures pending
-Abx with Rocephin
#Hyperlipidemia
-Continue atorvastatin
#BPH
-Continue flomax, finasteride
#Asthma
-continue albuterol.�
CODE STATUS Full code
DVT prophylaxis SCDs
--- NOTE | 2025-02-07 14:12 | CONS.URO ---
Consultation
-
Date/Time Consultation Performed: 02/07/2025 1550
Requesting Provider: Florentino
Performing Provider: Julito
Reason for Consultation: Left Renal pelvic stone
Medical History
History of Present Illness
Admission note, excerpt: 'presents to the ED complaining of left-sided flank pain that began this morning at 1am.� Patient reports pain was similar to what he had one year ago when he had a kidney stone.� Reports pain was severe, waking him up from
sleep.� He reports nausea and vomiting episode. Denies hematemesis. Denies Chest pain, shortness of breath, palpitation. Denies fever, denies chills.
Upon presentation to the ED, vitals with temperature 98.7, blood pressure 164/89'
11/10/2023 Left ureteroscopy, laser lithotripsy of stone, left double-J stent exchange by Dr Mathew
Past Medical History
Past Medical History: Other (hyperlipidemia, BPH, asthma, kidney stones, prediabetes)
Past Surgical History: Urological (see HPI)
Allergies/Home Medications
Allergies
Allergy/AdvReac Type Severity Reaction Status Date / Time
No Known Allergies Allergy Verified 02/07/25 08:11
Home Medications
�Medication �Instructions �Recorded �Confirmed �Type
ascorbic acid (vitamin C) 1,000 mg 500 mg PO DAILY Supplement 10/23/23 02/07/25 History
tablet (Vitamin C)
atorvastatin 80 mg tablet 80 mg PO DAILY High Cholesterol 10/23/23 02/07/25 History
multivitamin 1 tab PO DAILY Supplement 10/23/23 02/07/25 History
tamsulosin 0.4 mg capsule 0.4 mg PO QPM Prostate 10/23/23 02/07/25 History
turmeric 400 mg capsule 400 mg PO DAILY Supplement 10/23/23 02/07/25 History
vitamin B complex 1 cap PO DAILY Supplement 10/23/23 02/07/25 History
coQ10 (ubiquinol) 100 mg capsule 100 mg PO DAILY Supplement 02/07/25 02/07/25 History
finasteride 5 mg tablet 5 mg PO QPM prostate issue 02/07/25 02/07/25 History
vitamin E 268 mg (400 unit) capsule 268 mg PO DAILY Supplement 02/07/25 02/07/25 History
Physical Exam
Vital Signs
Vital Signs
Temp Pulse Resp BP Pulse Ox
98.7 F 66 18 131/79 94
02/07/25 08:11 02/07/25 11:44 02/07/25 11:26 02/07/25 12:00 02/07/25 13:15
Lab / Testing Results
Laboratory Results
02/07/25 08:20
02/07/25 08:20
Physical Exam
adult male in bed in ED
General: No Apparent Distress
GI: Soft and Non Tender
Genito-urinary: No Costovertebral Tend
Skin: Warm
Neuro: Awake, Alert and Oriented
Psych: Calm and Intact Judgement
Assessment / Plan
-
15 mm LEFT Renal Pelvic Stone
posted for tomorrow's OR after hydration and antibiosis
Data Reviewed
-
CT Scan: Image personally visualized and interpreted (15 mm LEFT Renal Pelvic Stone; right nephrolith)
Old Records: Reviewed
[2025-02-07] MEDS: TORADOL 15 MG IV (18:13)
[2025-02-07] MEDS: PROSCAR 5 MG PO (18:19)
[2025-02-07] MEDS: NSS (PRESERVATIVE FREE) 10 ML IV (18:22)
[2025-02-07] MEDS: PROTONIX IV 40 MG IV (18:22)
--- NOTE | 2025-02-07 18:43 | PTCARENOTE ---
Pt arrived to [facility] form the ED on a stretcher. Pt walked from stretcher to bed without incidence. Pt c/o left flank pain. Toradol administered. IVF hung. Bed locked and in lowest position. Care ongoing.
[2025-02-07] MEDS: STERILE WATER FOR INJECTION 10 ML IV (20:27)
[2025-02-08] VITALS (9 sets, daily range): BP systolic 109–143; BP diastolic 46–72
[2025-02-08] MEDS: NSS 1000 IV ×2 (02:17→18:04)
--- NOTE | 2025-02-08 02:39 | DOWNTIME ---
There was a [employer] Client Records Management Analyst Downtime on 02/08/2025 from 0100 to 02/08/2025 at 0235. Downtime documentation of patient's care, including medication administrations, has been reconciled in the electronic record per guidelines. Refer to the
patient's paper chart under the miscellaneous tab to see printed paper medication records and downtime forms.
[2025-02-08 06:22] LABS: Hematocrit 39.2 % (39.0-52.0); Hemoglobin 13.2 g/dL (13.0-18.0); Mean Corp Hgb Conc. 33.7 g/dL (33.0-37.0); Mean Corpuscular Volume 99.2 fL (80.0-94.0); Platelet Count 226 10^3/uL (130-400); Red Cell Dist. Width 12.9 % (11.5-14.5)
[2025-02-08 06:47] LABS: Blood Urea Nitrogen 23 mg/dl (9-20); Calcium 8.7 mg/dl (8.4-10.2); Carbon Dioxide 24 mmol/L (22-30); Chloride 108 mmol/L (98-107); Estimated Creatinine Clearance 52 ml/min; Glucose 118 mg/dl (70-99); Magnesium 2.2 mg/dl (1.6-2.3); Potassium 4.5 mmol/L (3.5-5.1); Sodium 139 mmol/L (135-145); eGFR 47.65
--- NOTE | 2025-02-08 07:57 | W.PN.HOSP.TC ---
Today's Communication/Plan
-
Npo for urologic intervention today
cont abx
follow urine cx
pain control
Toradol switched to Dilaudid prn d/t mild LESIA
Assessment / Plan
Assessment / Plan
Physical Exam
General: No acute distress, appears comfortable at this time, obese
HEENT: NormoCephalic and Moist mucous membranes
Respiratory: Clear
Cardiac: S1/S2 and Regular Rhythm
GI: Soft, Non Tender, bowel sounds present
Musculoskeletal: No Edema
Neuro: AO x 3
Psych: Calm
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
notable for elevated WBC at 17.8, BUN normal.� Urinalysis suggestive UTI.� CT scan showed 19 mm calculus at the left ureteropelvic junction. Slightly progressive perinephric soft tissue stranding and mild to moderate hydronephrosis. Pain improved
during ED evaluation and treatment with pain medications IVF and abx. No costovertebral angle tenderness was noted following pain control. Examination was notable for distended abdomen vs obesity habitus patient noted had been present for a few
months. Denied recent weight gain/loss or constipation.
#Left ureteropelvic junction obstructing calculus with mild�moderate hydronephrosis
-CT abdomen- 19 mm calculus at the left ureteropelvic junction. Slightly progressive perinephric soft tissue stranding and mild to moderate hydronephrosis. Cannot exclude superimposed infection. Other tiny nonobstructing bilateral renal calculi.
Interval development of 1.9 cm peripherally calcified urinary bladder calculus.
-pain control with Dilaudid prn,
-IV fluid support
-Urology consult appreciated NPO for OR today ureteroscopy stent placement
-urinalysis positive, urine cultures pending
-Abx with Rocephin
#Mild LESIA
Cr 1.5 initial Cr 1.1
prn Toradol switched to Dilaudid as above
cont IVF support
monitor
#Hyperlipidemia
-Continue atorvastatin
#BPH
-Continue flomax, finasteride
#Asthma
-continue albuterol.�
#Obesity
Prior concern distended abd more likely obesity habitus
Abd US appreciated Fatty Liver disease no cirrhosis or ascites
wt loss counseled
CODE STATUS Full code
DVT prophylaxis SCDs
GI ppx Protonix
Anticipated Discharge: 24 - 48 hours
Subjective/Interval History
-
Date of Service: February 08, 2025
No acute distress, overall reports feeling well. NPO awaiting urologic intervention.
Objective Data
-
Labs:
Laboratory Results
02/08/25 02/08/25
05:58 05:59
WBC 16.8 H
Hgb 13.2
Hct 39.2
Plt Count 226
Sodium 139
Potassium 4.5
Chloride 108 H
Carbon Dioxide 24
BUN 23 H
Creatinine 1.5 H
Glucose 118 H
Calcium 8.7
Vital Signs:
Vital Signs
Temp Pulse Resp BP Pulse Ox
98.8 F 75 18 120/63 91
02/07/25 23:15 02/07/25 23:15 02/07/25 23:15 02/07/25 23:15 02/07/25 23:15
I&O
02/07/25 02/08/25 02/09/25
06:59 06:59 06:59
Intake Total 406 / 406
Balance 406 / 406
[2025-02-08] MEDS: PROTONIX IV 40 MG IV (10:29)
[2025-02-08] MEDS: NSS (PRESERVATIVE FREE) 10 ML IV (10:29)
[2025-02-08] MEDS: DILAUDID 0.25 MG IV ×2 (10:37→18:04)
--- NOTE | 2025-02-08 14:29 | CM ---
CM reviewed chart. patient seen bedside, initial assessment completed. Patient resides with his in a two story home plus basement, two steps to enter. Patient denies use of DME, VN/SNF hx. PCP confirmed Robyn Do, pharmacy [facility]
Rikki Kang, confirms prescription coverage. Patient denies needs at this time, likely home no needs. CM will continue to follow for all discharge planning needs.
Plan; home no needs anticipated
[2025-02-08 16:49] LABS: Glucose - Point of Care 109 mg/dl (70-99)
[2025-02-08] MEDS: ROCEPHIN IV (17:00)
[2025-02-08] MEDS: STERILE WATER FOR INJECTION IV (17:01)
[2025-02-08] MEDS: NSS IV (18:01)
[2025-02-08] MEDS: PROSCAR 5 MG PO (18:01)
[2025-02-08] MEDS: VITAMIN C 500 MG PO (18:01)
[2025-02-08] MEDS: THERAGRAN 1 TABLET PO (18:01)
[2025-02-08] MEDS: B COMPLEX w/VITAMIN C 1 CAPLET PO (18:01)
[2025-02-08] MEDS: LIPITOR 80 MG PO (18:01)
[2025-02-08] MEDS: FLOMAX 0.4 MG PO (18:04)
--- NOTE | 2025-02-08 18:30 | PTCARENOTE ---
Pt received from the PACU via bed. Pt is AAOx3, HRR, lungs are clear, Pt w/ non-prod. cough, Pulse ox is 93%RA. VSS, Pt is afebrile. Pt reports moderate bladder/pelvic pain. Will medicate for pain as ordered. Pt denies nausea at this time. Pt able
to void immediately upon arriving post operatively to [facility]. Pt instructed on plan of care. Pt verbalized understanding of instructions. [facility] is within reach.
[2025-02-08] MEDS: TYLENOL 650 MG PO (19:40)
[2025-02-09] MEDS: NSS 1000 IV (01:17)
[2025-02-09 03:06] VITALS: BP 118/58
[2025-02-09 05:44] LABS: Hematocrit 36.2 % (39.0-52.0); Hemoglobin 12.1 g/dL (13.0-18.0); Mean Corp Hgb Conc. 33.4 g/dL (33.0-37.0); Mean Corpuscular Volume 98.4 fL (80.0-94.0); Platelet Count 191 10^3/uL (130-400); Red Cell Dist. Width 13.0 % (11.5-14.5)
[2025-02-09 06:13] LABS: Blood Urea Nitrogen 27 mg/dl (9-20); Calcium 8.2 mg/dl (8.4-10.2); Carbon Dioxide 21 mmol/L (22-30); Chloride 112 mmol/L (98-107); Estimated Creatinine Clearance 65 ml/min; Glucose 121 mg/dl (70-99); Magnesium 2.3 mg/dl (1.6-2.3); Potassium 4.6 mmol/L (3.5-5.1); Sodium 137 mmol/L (135-145); eGFR > 60.00
[2025-02-09 07:30] VITALS: BP 125/62
--- NOTE | 2025-02-09 09:14 | W.PN.HOSP.TC ---
Addendum entered and electronically signed by William Holly MD 02/10/25 05:47:
correction to documentation
POD1 s/p Left Renal Pelvic Stone, s/p ureteroscopy, laser lithotripsy, stenting
Original Note:
Today's Communication/Plan
-
cont abx
follow up urine cx
trend wbc
Assessment / Plan
Assessment / Plan
Physical Exam
General: No acute distress, appears comfortable at this time, obese
HEENT: NormoCephalic and Moist mucous membranes
Respiratory: Clear
Cardiac: S1/S2 and Regular Rhythm
GI: Soft, Non Tender, bowel sounds present
Musculoskeletal: No Edema
Neuro: AO x 3
Psych: Calm
79M HLD, BPH, Asthma, hx kidney stones p/w left-sided flank pain that began brand inspector waking him from sleep.� Patient reported pain similar to previous episode kidney stone year ago requiring urology eval and stenting.� VSS on room air.� Labs
notable for elevated WBC at 17.8, BUN normal.� Urinalysis suggestive UTI.� CT scan showed 19 mm calculus at the left ureteropelvic junction. Slightly progressive perinephric soft tissue stranding and mild to moderate hydronephrosis. Pain improved
during ED evaluation and treatment with pain medications IVF and abx. No costovertebral angle tenderness was noted following pain control. Examination was notable for distended abdomen vs obesity habitus patient noted had been present for a few
months. Denied recent weight gain/loss or constipation.
#Left ureteropelvic junction obstructing calculus with mild�moderate hydronephrosis
-CT abdomen- 19 mm calculus at the left ureteropelvic junction. Slightly progressive perinephric soft tissue stranding and mild to moderate hydronephrosis. Cannot exclude superimposed infection. Other tiny nonobstructing bilateral renal calculi.
Interval development of 1.9 cm peripherally calcified urinary bladder calculus.
-pain control with Dilaudid prn,
-IV fluid support
-Urology consult appreciated NPO for OR today ureteroscopy stent placement
-urinalysis positive, urine cultures pending
-Abx with Rocephin
#Mild LESIA
Cr 1.5 initial Cr 1.1
prn Toradol switched to Dilaudid as above
Cr trending down
IVF support completed diet
monitor
#Hyperlipidemia
-Continue atorvastatin
#BPH
-Continue flomax, finasteride
#Asthma
-continue albuterol.�
#Obesity
Prior concern distended abd more likely obesity habitus
Abd US appreciated Fatty Liver disease no cirrhosis or ascites
wt loss counseled
CODE STATUS Full code
DVT prophylaxis SCDs
GI ppx Protonix
I spent a total of 40 minutes with the patient or on the floor. More than 50% of this time involved counseling and coordination of care.
Anticipated Discharge: Within 24 hours
Subjective/Interval History
-
Date of Service: February 09, 2025
No acute distress, overall reports feeling well. Reports some dysuria but transient. Currently pain free.
Objective Data
-
Labs:
Laboratory Results
02/09/25
05:31
WBC 15.0 H
Hgb 12.1 L
Hct 36.2 L
Plt Count 191
Sodium 137
Potassium 4.6
Chloride 112 H
Carbon Dioxide 21 L
BUN 27 H
Creatinine 1.2
Glucose 121 H
Calcium 8.2 L
Vital Signs:
Vital Signs
Temp Pulse Resp BP Pulse Ox
98.2 F 52 16 125/62 96
02/09/25 07:30 02/09/25 07:30 02/09/25 07:30 02/09/25 07:30 02/09/25 07:30
I&O
02/08/25 02/09/25 02/10/25
06:59 06:59 06:59
Intake Total 406 / 406 780 / 780
Output Total 600 / 600
Balance 406 / 406 180 / 180
--- NOTE | 2025-02-09 09:45 | W.PN.URO.CBU ---
Today's Communication / Plan
-
will see as an outpatient to discuss tx options for Prostate Enlargement, Bladder Outlet Obstruction, Bladder Stones
Assessment / Plan
-
urologically stabilized
Diagnosis
-
Date of Service: February 09, 2025
-
Patient Diagnosis:
1. Left Renal Pelvic Stone, s/p ureteroscopy, laser lithotripsy, stenting
2. Prostate Enlargement, Bladder Outlet Obstruction, Bladder Stones
Post Op Day: 1
Objective
-
Vital Signs
Temp Pulse Resp BP Pulse Ox
98.2 F 52 16 125/62 96
02/09/25 07:30 02/09/25 07:30 02/09/25 07:30 02/09/25 07:30 02/09/25 07:30
Intake and Output
02/08/25 02/09/25 02/10/25
06:59 06:59 06:59
Intake Total 406 / 406 780 / 780
Output Total 600 / 600
Balance 406 / 406 180 / 180
Intake:
Oral fluids 406 / 406 480 / 480
IV fluids (Total) 300 / 300
Normosol 300 / 300
Output:
Urine, Voided 600 / 600
Other:
Number of approximated MODERATE 2
amounts of urine
Laboratory Results
02/09/25 05:31
02/09/25 05:31
urine cx: pending
Physical Exam
-
General - well developed, well nourished, no acute distress
Chest - clear bilaterally
Abdomen - soft, non-tender, positive bowel sounds, no CVAT, no incisional pain or distention
Genitalia - normal
Rectal - normal
Skin - warm & dry with no rash
Neuro - AOx3, no motor deficits
Extremities - no clubbing, no cyanosis, no edema
Incision - clean, dry
Dressing - clean, dry, intact
[2025-02-09] MEDS: B COMPLEX w/VITAMIN C 1 CAPLET PO (10:03)
[2025-02-09] MEDS: LIPITOR 80 MG PO (10:03)
[2025-02-09] MEDS: NSS (PRESERVATIVE FREE) 10 ML IV (10:04)
[2025-02-09] MEDS: THERAGRAN 1 TABLET PO (10:04)
[2025-02-09] MEDS: PROTONIX IV 40 MG IV (10:05)
[2025-02-09] MEDS: VITAMIN C 500 MG PO (10:05)
--- NOTE | 2025-02-09 10:51 | CM ---
Home no needs.
Plan; Home when stable, no needs.
[2025-02-09 11:25] VITALS: BP 127/65
[2025-02-09] MEDS: STERILE WATER FOR INJECTION 20 ML IV (13:11)
[2025-02-09] MEDS: ROCEPHIN 2000 MG IV (13:11)
[2025-02-09] MEDS: TYLENOL 650 MG PO (13:16)
[2025-02-09 15:30] VITALS: BP 107/51
[2025-02-09] MEDS: FLOMAX 0.4 MG PO (18:32)
[2025-02-09] MEDS: PROSCAR 5 MG PO (18:32)
[2025-02-09 21:29] LABS: Hepatitis C Antibody Negative (Negative)
[2025-02-09 23:15] VITALS: BP 105/47
[2025-02-10 06:38] LABS: Hematocrit 36.7 % (39.0-52.0); Hemoglobin 12.0 g/dL (13.0-18.0); Mean Corp Hgb Conc. 32.7 g/dL (33.0-37.0); Mean Corpuscular Volume 98.4 fL (80.0-94.0); Platelet Count 193 10^3/uL (130-400); Red Cell Dist. Width 13.0 % (11.5-14.5)
[2025-02-10 06:59] LABS: Blood Urea Nitrogen 22 mg/dl (9-20); Calcium 8.5 mg/dl (8.4-10.2); Carbon Dioxide 25 mmol/L (22-30); Chloride 110 mmol/L (98-107); Estimated Creatinine Clearance 71 ml/min; Glucose 102 mg/dl (70-99); Magnesium 2.2 mg/dl (1.6-2.3); Potassium 4.8 mmol/L (3.5-5.1); Sodium 140 mmol/L (135-145); eGFR > 60.00
[2025-02-10 07:50] VITALS: BP 132/63
[2025-02-10] MEDS: NSS (PRESERVATIVE FREE) 10 ML IV (08:14)
[2025-02-10] MEDS: PROTONIX IV 40 MG IV (08:14)
[2025-02-10] MEDS: VITAMIN C 500 MG PO (08:16)
[2025-02-10] MEDS: THERAGRAN 1 TABLET PO (08:16)
[2025-02-10] MEDS: LIPITOR 80 MG PO (08:16)
[2025-02-10] MEDS: B COMPLEX w/VITAMIN C 1 CAPLET PO (08:16)
--- NOTE | 2025-02-10 09:19 | CM ---
Review the chart notes and spoke with the patient and spouse at the bedside. IMM reviewed. CM continues to be available to patient/family and is monitoring medical plan for needs at discharge.
Plan: Discharge to home with no additional needs being identified at this time.
--- NOTE | 2025-02-10 10:41 | W.PN.URO.CBU ---
Today's Communication / Plan
-
fit for discharge urologically
would tx for UTI with 10 days of po abx
will sign off
Assessment / Plan
-
urologically stabilized
urine cx -- see results
Diagnosis
-
Date of Service: February 10, 2025
-
Patient Diagnosis:
1. Left Renal Pelvic Stone, s/p ureteroscopy, laser lithotripsy, stenting
2. Prostate Enlargement, Bladder Outlet Obstruction, Bladder Stones
Post Op Day: 2
Subjective
-
hematuria and some dysuria, as expected
Objective
-
Vital Signs
Temp Pulse Resp BP Pulse Ox
99.0 F 59 18 132/63 95
02/10/25 07:50 02/10/25 07:50 02/10/25 07:50 02/10/25 07:50 02/10/25 07:50
Intake and Output
02/09/25 02/10/25 02/11/25
06:59 06:59 06:59
Intake Total 780 / 780 2340 / 2340
Output Total 600 / 600
Balance 180 / 180 2340 / 2340
Intake:
Oral fluids 480 / 480 2340 / 2340
IV fluids (Total) 300 / 300
Normosol 300 / 300
Output:
Urine, Voided 600 / 600
Other:
Number of approximated MODERATE 3
amounts of urine
Number of approximated LARGE 3
amounts of urine
Laboratory Results
02/10/25 06:06
02/10/25 06:06
Physical Exam
-
General - well developed, well nourished, no acute distress
Chest - clear bilaterally
Abdomen - soft, non-tender, positive bowel sounds, no CVAT, no incisional pain or distention
Genitalia - normal
Rectal - normal
Skin - warm & dry with no rash
Neuro - AOx3, no motor deficits
Extremities - no clubbing, no cyanosis, no edema
Incision - clean, dry
Dressing - clean, dry, intact
[2025-02-10] MEDS: ROCEPHIN 2000 MG IV (12:57)
[2025-02-10] MEDS: STERILE WATER FOR INJECTION 20 ML IV (12:57)
--- NOTE | 2025-02-10 13:18 | W.PN.HOSP.TC ---
Addendum entered and electronically signed by Aydin Chacon MD 02/10/25 17:00:
stone is 19 mm not 90 mm
Original Note:
Today's Communication/Plan
-
Discharge
Assessment / Plan
Assessment / Plan
79-year-old with left kidney stone status post ureteroscopic lithotripsy and stenting.
CT abdomen- 19 mm calculus at the left ureteropelvic junction. Slightly progressive perinephric soft tissue stranding and mild to moderate hydronephrosis. Cannot exclude superimposed infection. Other tiny nonobstructing bilateral renal calculi.
Interval development of 1.9 cm peripherally calcified urinary bladder calculus.
Anxious to go home!
CVS: S1-S2 normal
Chest: CTA B/L
Abdomen: Soft, NT / Bowel sounds present, No CVA tenderness.
Extremities: No edema
# s/p Left Renal Pelvic Stone, s/p ureteroscopy, laser lithotripsy, stenting for 90 mm calculus at the UP junction with hydronephrosis
Urine cultures coag neg staph
Change ceftriaxone To Ceftin
White count trending down
# Mild LESIA creatinine 1.5 from 1.1
Trending down
# Hyperlipidemia-Continue atorvastatin
# BPH-Continue Flomax, finasteride
# Asthma-continue albuterol.�
# Obesity BMI 31- weight loss advised
# Fatty Liver disease
# DVT prophylaxis-SCDs
# Full code
D/W RN
Discharge coordination time over 30 Min
Part of this note was created using voice recognition system. Occasional wrong word or��sound alike� substitutions may have inadvertently occurred due to the inherent limitations of voice recognition software. If noted kindly bring it to my
attention for correction.
Anticipated Discharge: Today
Subjective/Interval History
-
Date of Service: February 10, 2025
Objective Data
-
Labs:
Laboratory Results
02/10/25
06:06
WBC 10.9 H
Hgb 12.0 L
Hct 36.7 L
Plt Count 193
Sodium 140
Potassium 4.8
Chloride 110 H
Carbon Dioxide 25
BUN 22 H
Creatinine 1.1
Glucose 102 H
Calcium 8.5
Vital Signs:
Vital Signs
Temp Pulse Resp BP Pulse Ox
99.0 F 59 18 132/63 95
02/10/25 07:50 02/10/25 07:50 02/10/25 07:50 02/10/25 07:50 02/10/25 07:50
I&O
02/09/25 02/10/25 02/11/25
06:59 06:59 06:59
Intake Total 780 / 780 2340 / 2340 380 / 380
Output Total 600 / 600
Balance 180 / 180 2340 / 2340 380 / 380
--- NOTE | 2025-02-10 13:23 | W.DS.TRANS ---
Addendum entered and electronically signed by Aydin Chacon MD 02/10/25 17:01:
Dictation- [id number]
Original Note:
DC Summary - [employer]
-
Discharge Instructions:
Discharge Diagnosis/Procedures Left Renal Pelvic Stone s/p ureteroscopy, laser
lithotripsy, stenting; Prostate Enlargement with
Bladder Outlet Obstruction with Bladder Stones
UTI
fatty liver
Diet Low Fat
Activity As tolerated
Driving Restrictions As prior to admission
Instructions:
Stand-Alone Forms:
Changes to Home Medications: Yes
Discharge Medications:
DC Medications w/original date entered in [email or web address]
ascorbic acid (vitamin C) 1,000 mg tablet (Vitamin C) 500 mg PO DAILY Supplement 10/23/23
atorvastatin 80 mg tablet 80 mg PO DAILY High Cholesterol 10/23/23
multivitamin 1 tab PO DAILY Supplement 10/23/23
tamsulosin 0.4 mg capsule 0.4 mg PO QPM Prostate 10/23/23
turmeric 400 mg capsule 400 mg PO DAILY Supplement 10/23/23
vitamin B complex 1 cap PO DAILY Supplement 10/23/23
coQ10 (ubiquinol) 100 mg capsule 100 mg PO DAILY Supplement 02/07/25
finasteride 5 mg tablet 5 mg PO QPM prostate issue 02/07/25
cefuroxime axetil 500 mg tablet 500 mg PO BID uti 10 days #20 tabs 02/10/25
Home Medication Changes
yes
New- ceftin
Pending Results: No
[2025-02-10 13:59] VITALS: BP 122/62
== END 2025-02-10 14:13 | disposition home or self-care (01) | DRG 661 ==
LOC: 2 SOUTH 12:50
PROVIDERS: Emergency Medicine; Student in an Organized Health Care Education/Training Program; ADMITTING PHYSICIAN Internal Medicine; ATTENDING PHYSICIAN Hospitalist; CONSULT PHYSICIAN Specialist; EMERGENCY PHYSICIAN Student in an Organized Health Care Education/Training Program; FAMILY PHYSICIAN Internal Medicine
PROC: 0TC48ZZ Extirpation of Matter from Left Kidney Pelvis, Via Natural or Artificial Opening Endoscopic (ICD-10-PCS; 2025-02-08)
PROC: 0T778DZ Dilation of Left Ureter with Intraluminal Device, Via Natural or Artificial Opening Endoscopic (ICD-10-PCS; 2025-02-08)
DX: N13.6 Pyonephrosis (principal); E78.00 Pure hypercholesterolemia, unspecified; E78.49 Other hyperlipidemia; J45.909 Unspecified asthma, uncomplicated; G47.8 Other sleep disorders; R73.03 Prediabetes; N17.9 Acute kidney failure, unspecified; K76.0 Fatty (change of) liver, not elsewhere classified; N40.1 Benign prostatic hyperplasia with lower urinary tract symptoms; N32.0 Bladder-neck obstruction; N21.0 Calculus in bladder; E66.9 Obesity, unspecified; Z68.31 Body mass index [BMI] 31.0-31.9, adult; Z87.442 Personal history of urinary calculi
CPT/HCPCS: 74018; 74176; 76000; 76700; 80048; 80053; 81003; 81015; 82365; 82962; 83735; 84100; 85025; 85027; 86803; 87086; 87147; 87186; 93975; 96361; 96374; 96375; 99285; C1894; C2617

== ENCOUNTER → 2025-02-22 12:24 | Outpatient (REF) | payer MEDICARE, SELFPAY | LOC: SDSPAT 12:24 | PROVIDERS: ATTENDING PHYSICIAN Specialist; FAMILY PHYSICIAN Internal Medicine | DX: N40.1 Benign prostatic hyperplasia with lower urinary tract symptoms (principal); N21.0 Calculus in bladder | CPT/HCPCS: 36415; 93005 ==

== ENCOUNTER 2025-03-15 06:25 | Day surgery (SDC) | payer MEDICARE, SELFPAY ==
[2025-02-22 14:10] VITALS: BMI 31.5
[2025-03-15] VITALS (14 sets, daily range): BP systolic 128–149; BP diastolic 66–78; BMI 31.5
[2025-03-15] MEDS: NORMOSOL-R/PLASMALYTE-A 1000 IV (10:28)
--- NOTE | 2025-03-15 18:15 | PTCARENOTE ---
Pt received from the PACU via bed. Transport was w/o incident. Pt is AAOx3, CBI running without difficulty, urine output is clear at this time, no clots present. Traction to torres in place and will be removed as ordered at 2200 tonight. VSS, Pt is
afebrile. Pt instructed on plan of care. Pt verbalized understanding of instructions. [facility] is within reach.
[2025-03-15] MEDS: PROSCAR 5 MG PO (19:23)
[2025-03-15] MEDS: FLOMAX 0.4 MG PO (19:23)
--- NOTE | 2025-03-15 22:07 | PTCARENOTE ---
Urinary catheter traction removed @2200 per orders.
[2025-03-16 03:04] VITALS: BP 113/60
--- NOTE | 2025-03-16 06:12 | PTCARENOTE ---
@[address] indwelling urinary catheter removed per orders. Reviewed plan of care and next steps with patient who verbalized his understanding.
[2025-03-16 06:54] LABS: Hematocrit 37.2 % (39.0-52.0); Hemoglobin 13.0 g/dL (13.0-18.0); Mean Corp Hgb Conc. 34.9 g/dL (33.0-37.0); Mean Corpuscular Volume 95.6 fL (80.0-94.0); Platelet Count 226 10^3/uL (130-400); Red Cell Dist. Width 12.6 % (11.5-14.5)
[2025-03-16 07:17] LABS: Blood Urea Nitrogen 14 mg/dl (9-20); Calcium 8.7 mg/dl (8.4-10.2); Carbon Dioxide 23 mmol/L (22-30); Chloride 109 mmol/L (98-107); Estimated Creatinine Clearance 111 ml/min; Glucose 111 mg/dl (70-99); Potassium 4.3 mmol/L (3.5-5.1); Sodium 136 mmol/L (135-145); eGFR > 60.00
[2025-03-16 07:40] VITALS: BP 126/71
[2025-03-16] MEDS: LIPITOR 80 MG PO (08:23)
--- NOTE | 2025-03-16 08:33 | W.PN.URO.CBU ---
Today's Communication / Plan
-
home after voiding trial
Assessment / Plan
-
BPH/PARMAR/Bladder Stone s/p TURP and Cystolitholapaxy
Diagnosis
-
Date of Service: March 16, 2025
-
Patient Diagnosis: BPH/PARMAR/Bladder Stone s/p TURP and Cystolitholapaxy
Post Op Day: 1
Subjective
-
no pain
yet to feel urge to void
Objective
-
Vital Signs
Temp Pulse Resp BP Pulse Ox
98.2 F 64 16 126/71 95
03/16/25 07:40 03/16/25 07:40 03/16/25 07:40 03/16/25 07:40 03/16/25 07:40
Intake and Output
03/15/25 03/16/25 03/17/25
06:59 06:59 06:59
Output Total 1800 / 1800 100 / 100
Balance -1800 / -1800 -100 / -100
Output:
Urine, Voided 100 / 100
True Urine Output from CBI 1800 / 1800
Laboratory Results
03/16/25 05:34
03/16/25 05:34
Physical Exam
-
General - well developed, well nourished, no acute distress
Abdomen - soft, non-tender, positive bowel sounds,no distention
Skin - warm & dry with no rash
Neuro - AOx3, no motor deficits
Extremities - no clubbing, no cyanosis, no edema
--- NOTE | 2025-03-16 10:35 | CM ---
Reviewed the chart notes and spoke with the patient at the bedside. The patient resides with his spouse in a two story home with two steps to enter. The patient reports no DME/VN/SNF in the past. The patient confirmed his pharmacy of choice is
[facility]. CM continues to be available to patient/family and is monitoring medical plan for needs at discharge.
Plan: Discharge to home when medically stable. The patient's spouse to transport patient home.
[2025-03-16 11:03] VITALS: BP 133/71
== END 2025-03-16 12:49 | disposition home or self-care (01) ==
LOC: SDS 06:25
PROVIDERS: ATTENDING PHYSICIAN Specialist; FAMILY PHYSICIAN Internal Medicine
DX: N40.1 Benign prostatic hyperplasia with lower urinary tract symptoms (principal); N21.0 Calculus in bladder; N20.0 Calculus of kidney; N32.0 Bladder-neck obstruction
CPT/HCPCS: 52601; 80048; 82365; 85027; 88305